=== PATIENT | male | born 1990 | race Caucasian/White ===

== ENCOUNTER 2018-12-03 19:48 | Emergency (ER) | payer OTHER ==
[~2018-12-03] VITALS: Ht 182 cm; Wt 80.5 kg
[2018-12-03 19:53] VITALS: BP 133/86; TEMP 97
[2018-12-03 21:41] VITALS: PULSE 65
[2018-12-03] MEDS ORDERED: MEDROL2 M1 PO (21:41)
== END 2018-12-03 21:43 | disposition home or self-care (01) ==
LOC: COL.ER 19:48
DX: S61.411A Laceration without foreign body of right hand, initial encounter (principal); G70.00 Myasthenia gravis without (acute) exacerbation; W26.0XXA Contact with knife, initial encounter; Y92.009 Unspecified place in unspecified non-institutional (private) residence as the place of occurrence of the external cause